=== PATIENT | male | born 1985 | race Caucasian/White ===

== ENCOUNTER 2018-01-29 12:30 | Emergency (ER) | payer MEDICAID ==
[~2018-01-29] VITALS: Ht 162.6 cm; Wt 56.0 kg
[~2018-01-29 12:30] MED LIST: no home meds
[2018-01-29 12:33] VITALS: BP 120/74
[2018-01-29] MEDS ORDERED: ACETAMINOPHEN 500 MG TABLET PO ONE (13:30)
[2018-01-29] MEDS ORDERED: IBUPROFEN 200 MG TABLET PO ONE (13:30)
[2018-01-29] MEDS ORDERED: NITROGLYCERIN SINGLE TAB 0.4 MG SL PRN (13:30)
[2018-01-29 13:33] LABS: BASOPHILS # (AUTO) 0.02 x10^3/uL (0-0.1); BASOPHILS % (AUTO) 0 % (0-1); EOSINOPHILS # (AUTO) 0.08 x10^3/uL (0-0.4); EOSINOPHILS % (AUTO) 2 % (1-7); LYMPHOCYTES # (AUTO) 1.13 x10^3/uL (1-3.4); LYMPHOCYTES % (AUTO) 21 % (22-44); MD NO; MEAN CORPUSCULAR HEMOGLOBIN 31.4 pg (27.5-34.5); MEAN CORPUSCULAR HGB CONC 33.8 g/dL (33.2-36.2); MEAN CORPUSCULAR VOLUME 92.7 fL (81-97); MONOCYTES # (AUTO) 0.29 x10^3/uL (0.2-0.8); MONOCYTES % (AUTO) 5 % (2-9); NEUTROPHILS # (AUTO) 3.95 x10^3/uL (1.8-6.8); NEUTROPHILS % (AUTO) 72 % (42-75); PLATELET COUNT 259 x10^3/uL (130-400); RED BLOOD COUNT 4.51 x10^6/uL (4.38-5.82); RED CELL DISTRIBUTION WIDTH 12.9 % (9.4-14.8)
[2018-01-29] MEDS ORDERED: IBUPROFEN 200 MG TABLET ONE (13:37)
[2018-01-29] MEDS ORDERED: ACETAMINOPHEN 500 MG TABLET ONE (13:38)
[2018-01-29] MEDS ORDERED: ASPIRIN 81 MG TABLET CHEW PO ONE (14:00)
[2018-01-29 14:17] LABS: ALANINE AMINOTRANSFERASE 44 U/L (12-78); ALBUMIN 3.4 g/dL (3.4-5.0); ANION GAP 15 mmol/L (5-15); CALCIUM 8.5 mg/dL (8.5-10.1); CHLORIDE 92 mmol/L (98-107); CREATININE 1.28 mg/dL (0.7-1.3)
[2018-01-29 14:20] LABS: ALKALINE PHOSPHATASE 134 U/L (45-117); BILIRUBIN,TOTAL 0.3 mg/dL (0.2-1.0); TOTAL PROTEIN 6.9 g/dL (6.4-8.2)
[2018-01-29] MEDS ORDERED: SODIUM CHLORIDE 0.9% 1,000ML IVBOLUS ONE (15:00)
[2018-01-29 15:33] LABS: HEMOGLOBIN A1C 13.2 % (4.2-6.3)
[2018-01-29] MEDS ORDERED: INSULIN REGULAR 100 UNITS/ML, 3ML VIAL SQ-INSULIN SCH (16:00)
== END 2018-01-29 15:41 | disposition left against medical advice (07) ==
LOC: ED 12:58
DX: R07.89 Other chest pain (principal); E10.65 Type 1 diabetes mellitus with hyperglycemia
CPT/HCPCS: 36415; 71046; 80053; 82378; 83036; 83930; 85025; 99285

== ENCOUNTER 2018-07-30 10:29 | Emergency (ER) | payer MEDICAID ==
[~2018-07-30] VITALS: Ht 162.6 cm; Wt 52.0 kg
[2018-07-30 10:38] VITALS: BP 132/95
[2018-07-30 11:16] LABS: BASOPHILS # (AUTO) 0.04 x10^3/uL (0-0.1); BASOPHILS % (AUTO) 1 % (0-1); EOSINOPHILS # (AUTO) 0.06 x10^3/uL (0-0.4); EOSINOPHILS % (AUTO) 1 % (1-7); LYMPHOCYTES # (AUTO) 1.91 x10^3/uL (1-3.4); LYMPHOCYTES % (AUTO) 24 % (22-44); MD NO; MEAN CORPUSCULAR HEMOGLOBIN 30.7 pg (27.5-34.5); MEAN CORPUSCULAR HGB CONC 34.5 g/dL (33.2-36.2); MEAN CORPUSCULAR VOLUME 89.2 fL (81-97); MEAN PLATELET VOLUME 9.6 fL (7.4-10.4); MONOCYTES # (AUTO) 0.44 x10^3/uL (0.2-0.8); MONOCYTES % (AUTO) 6 % (2-9); NEUTROPHILS # (AUTO) 5.52 x10^3/uL (1.8-6.8); NEUTROPHILS % (AUTO) 69 % (42-75); PLATELET COUNT 304 x10^3/uL (130-400); RED BLOOD COUNT 5.39 x10^6/uL (4.38-5.82)
[2018-07-30 11:25] LABS: ALANINE AMINOTRANSFERASE 44 U/L (12-78); ANION GAP 10 mmol/L (5-15); CALCIUM 9.4 mg/dL (8.5-10.1); CHLORIDE 98 mmol/L (98-107)
[2018-07-30 11:27] LABS: MICROSCOPIC AUTO
[2018-07-30 11:28] LABS: ALKALINE PHOSPHATASE 147 U/L (45-117); BILIRUBIN,TOTAL 0.4 mg/dL (0.2-1.0); CREATININE 0.76 mg/dL (0.7-1.3); TOTAL PROTEIN 8.4 g/dL (6.4-8.2)
[2018-07-30] MEDS ORDERED: ACETAMINOPHEN 500 MG TABLET ONE (11:28)
[2018-07-30] MEDS ORDERED: ACETAMINOPHEN 500 MG TABLET PO ONE (11:30)
[2018-07-30 11:33] LABS: CULTURE INDICATED? NO
[2018-07-30] MEDS ORDERED: SODIUM CHLORIDE 0.9% 1,000ML IVBOLUS ONE (12:00)
[2018-07-30 12:53] LABS: ACETONE, SERUM Moderate(40mg/dL) mg/dL (Negative)
== END 2018-07-30 12:43 | disposition home or self-care (01) ==
LOC: ED 12:08
DX: R11.2 Nausea with vomiting, unspecified (principal); E11.9 Type 2 diabetes mellitus without complications
CPT/HCPCS: 36415; 71045; 80053; 81001; 82010; 85025; 93005; 99284; J7030

== ENCOUNTER 2018-12-28 18:39 | Emergency (ER) | payer MEDICAID, OTHER ==
[~2018-12-28] VITALS: Ht 162.6 cm; Wt 61.0 kg
[2018-12-28 20:00] LABS: BASOPHILS # (AUTO) 0.05 x10^3/uL (0-0.1); BASOPHILS % (AUTO) 1 % (0-1); EOSINOPHILS # (AUTO) 0.17 x10^3/uL (0-0.4); EOSINOPHILS % (AUTO) 2 % (1-7); LYMPHOCYTES # (AUTO) 3.76 x10^3/uL (1-3.4); LYMPHOCYTES % (AUTO) 34 % (22-44); MD NO; MEAN CORPUSCULAR HGB CONC 33.4 g/dL (33.2-36.2); MEAN CORPUSCULAR VOLUME 89.9 fL (81-97); MEAN PLATELET VOLUME 8.9 fL (7.4-10.4); MONOCYTES # (AUTO) 0.91 x10^3/uL (0.2-0.8); MONOCYTES % (AUTO) 8 % (2-9); NEUTROPHILS # (AUTO) 6.08 x10^3/uL (1.8-6.8); NEUTROPHILS % (AUTO) 56 % (42-75); PLATELET COUNT 344 x10^3/uL (130-400); RED BLOOD COUNT 5.35 x10^6/uL (4.38-5.82); RED CELL DISTRIBUTION WIDTH 13.2 % (9.4-14.8)
[2018-12-28 20:12] LABS: ALANINE AMINOTRANSFERASE 23 U/L (12-78); ALBUMIN 3.9 g/dL (3.4-5.0); ANION GAP 4 mmol/L (5-15); CALCIUM 9.4 mg/dL (8.5-10.1); CHLORIDE 106 mmol/L (98-107); CREATININE 0.86 mg/dL (0.7-1.3)
[2018-12-28 20:14] LABS: ALKALINE PHOSPHATASE 99 U/L (45-117); BILIRUBIN,TOTAL 0.2 mg/dL (0.2-1.0); TOTAL PROTEIN 7.8 g/dL (6.4-8.2)
[2018-12-28 20:32] VITALS: BP 126/98
== END 2018-12-28 21:06 | disposition home or self-care (01) ==
LOC: ED 20:42
DX: S39.012A Strain of muscle, fascia and tendon of lower back, initial encounter (principal); R05 Cough; E10.9 Type 1 diabetes mellitus without complications; Z86.19 Personal history of other infectious and parasitic diseases; X58.XXXA Exposure to other specified factors, initial encounter; Y93.89 Activity, other specified; Y92.89 Other specified places as the place of occurrence of the external cause; Y99.8 Other external cause status
CPT/HCPCS: 36415; 71046; 72110; 80053; 82962; 85025; 93005; 99284

== ENCOUNTER 2020-08-06 17:31 | Emergency (ER) | payer MEDICAID ==
[~2020-08-06] VITALS: Ht 162.6 cm; Wt 59.9 kg
[2020-08-06 17:34] VITALS: BP 118/72
--- NOTE | 2020-08-06 17:42 | NUR ---
EKG COMPLETED IN TRIAGE.
[2020-08-06] MEDS ORDERED: IBUPROFEN 200 MG TABLET PO ONE (18:00)
[2020-08-06] MEDS ORDERED: IBUPROFEN 600 MG TABLET ONE (18:05)
--- NOTE | 2020-08-06 18:10 | NUR ---
PT AMBULATORY TO XR.
--- NOTE | 2020-08-06 19:15 | NUR ---
pt a&ox4, and information given by , f/u and d/c instructions given to pt. and he v/u
== END 2020-08-06 19:18 | disposition home or self-care (01) ==
LOC: ED 18:48
DX: R07.89 Other chest pain (principal); R07.81 Pleurodynia; E11.9 Type 2 diabetes mellitus without complications; F17.210 Nicotine dependence, cigarettes, uncomplicated; Z72.9 Problem related to lifestyle, unspecified
CPT/HCPCS: 93005; 99283; 99406